=== PATIENT | female | born 1925 | race Caucasian/White ===

== ENCOUNTER 2016-07-11 20:14 | Observation (INO) | payer OTHER ==
[~2016-07-11] VITALS: Ht 154.9 cm; Wt 54.5 kg
[~2016-07-11 20:14] MED LIST: ASCORBIC ACID100 MG PO; ASPIRIN E.C.81 M1 PO; ATACAND32 MG PO; Aspirin PO; Atacand PO; CANDESARTAN CIL32 MG PO; CARDIZEM30 MG PO; COQ-1050 MG PO; CRESTOR10 MG PO; CYANOCOBALAM1000 MCG PO; Cardizem CD,Cartia X PO; DILTIAZEM 24HR360 M1 PO; ELIQUIS2.5 MG PO; FISH OIL300 MG PO; Fish Oil PO; HALFPRIN162 MG PO; MAGNESIUM250 MG PO; Magnesium PO; Osteo-Biflex,Flex-A- PO; PRESERVISIO1 CAPSULE PO; VITAMIN D1000 INTUN PO; Vitamin B-12 PO; Vitamin D PO; [UNRECOGNIZED DRUG - OTHER] OP
[2016-07-11 22:18] LABS: ADD MIUA? NO; BILIRUBIN NEGATIVE; BLOOD NEGATIVE; COLOR STRAW ((YELLOW)); GLUCOSE (STRIP) NEGATIVE; KETONES NEGATIVE; LEUKOCYTES NEGATIVE; NITRITE NEGATIVE; PROTEIN (STRIP) NEGATIVE; SPECIFIC GRAVITY 1.003 (1.000-1.030); UROBILINOGEN 0.2 MG/DL (0.2-1.0)
[2016-07-11 23:06] LABS: HEMATOCRIT 37.8 % (36.0-46.0); MCH 31.4 PG (29.0-34.0); MCHC 33.6 G/DL (30.0-36.0); MCV 93.3 FL (83-99); MEAN PLAT.VOLUME 11.1 uM^3 (9.5-12.4); PLATELET COUNT 229 K/uL (156-360); RBC DIS.WIDTH-CV 12.4 % (11.8-14.6); RBC DIS.WIDTH-SD 42.8 % (39-53); RED BLOOD COUNT 4.05 M/uL (3.80-5.20); WHITE BLOOD COUNT 6.3 K/uL (4.1-10.2)
[2016-07-11 23:13] LABS: CHLORIDE 107 mEq/L (99-109); POTASSIUM 3.8 mEq/L (3.7-5.4); SODIUM 144 mEq/L (136-147)
[2016-07-11 23:15] LABS: GLUCOSE 114 mg/dL (70-99)
[2016-07-11 23:16] LABS: ANION GAP 15 MEQ/L (2-14)
[2016-07-11 23:19] LABS: GFR ESTIMATE (CALCULATED) > 59 mL/min/
[2016-07-11 23:20] LABS: UREA NITROGEN (BUN) 23 mg/dL (9-23)
[2016-07-12 04:27] VITALS: BP 176/77
[2016-07-12 04:34] LABS: TROP-I INTERPRETATION NEGATIVE; TROPONIN-I 0.01 ng/mL (0.0-0.30)
[2016-07-12 06:18] VITALS: BP 146/65
[2016-07-12 09:40] VITALS: BP 149/66
[2016-07-12] MEDS ORDERED: B COMPLETE1 EACH PO (09:56)
[2016-07-12] MEDS ORDERED: ADVIL200 MG PO (09:56)
[2016-07-12] MEDS ORDERED: DIOVAN320 MG PO (09:57)
[2016-07-12 09:58] LABS: TROP-I INTERPRETATION NEGATIVE; TROPONIN-I 0.02 ng/mL (0.0-0.30)
[2016-07-12] MEDS ORDERED: FLONASE16 G1 BOTH NARES (09:58)
[2016-07-12] MEDS ORDERED: VITAMIN D31000 UNIT PO (10:00)
[2016-07-12 11:45] VITALS: BP 125/56
[2016-07-12 13:41] LABS: TROP-I INTERPRETATION NEGATIVE; TROPONIN-I 0.02 ng/mL (0.0-0.30)
[2016-07-12] MEDS ORDERED: AMLODIPINE BESY10 MG PO (14:01)
[2016-07-12] MEDS ORDERED: ASPIR-LOW81 MG PO (14:02)
== END 2016-07-12 15:46 | disposition home or self-care (01) ==
LOC: EME 20:14 → EDOF 07-12 03:35 → 5WEST 07-12 03:35 → EDOF 07-12 03:35 → 5WEST 07-12 04:11
PROVIDERS: Family Medicine; Nurse Practitioner Adult Health; Physician Assistant
DX: I48.91 Unspecified atrial fibrillation (principal); I25.10 Atherosclerotic heart disease of native coronary artery without angina pectoris; Z95.1 Presence of aortocoronary bypass graft; I10 Essential (primary) hypertension; E78.5 Hyperlipidemia, unspecified; Z95.0 Presence of cardiac pacemaker; Z87.891 Personal history of nicotine dependence
CPT/HCPCS: 71010; 80048; 81003; 84484; 85027; 93005; G0378; J0360